=== PATIENT | male | born 1955 ===

== ENCOUNTER 2019-01-30 10:57 | Outpatient (CLI) | payer OTHER | END 2019-01-30 17:00 | disposition home or self-care (01) | LOC: TOM 10:57 | DX: R51 Headache (principal) ==

== ENCOUNTER 2019-06-01 06:00 | Day surgery (SDC) | payer OTHER | END 2019-06-01 10:30 | disposition home or self-care (01) | LOC: AMB-ENDOS 06:00 | DX: D12.0 Benign neoplasm of cecum (principal); D12.2 Benign neoplasm of ascending colon; D12.3 Benign neoplasm of transverse colon; K64.4 Residual hemorrhoidal skin tags ==

== ENCOUNTER 2021-05-17 08:00 | Outpatient (CLI) | payer OTHER | END 2021-05-17 08:30 | disposition home or self-care (01) | LOC: PPH VACUNA 08:00 | PROVIDERS: ATTEND Emergency Medicine Pediatric Emergency Medicine | DX: Z23 Encounter for immunization (principal) ==

== ENCOUNTER 2021-11-29 09:00 | Outpatient (CLI) | payer OTHER | END 2021-11-29 09:15 | disposition home or self-care (01) | LOC: PPH VACUNA 09:00 | PROVIDERS: ATTEND Emergency Medicine Pediatric Emergency Medicine | DX: Z23 Encounter for immunization (principal) ==

== ENCOUNTER 2022-10-03 08:42 | Outpatient (CLI) | payer OTHER | END 2022-10-03 08:46 | disposition home or self-care (01) | LOC: RAD 08:42 | PROVIDERS: ATTEND Obstetrics & Gynecology | DX: J45.998 Other asthma (principal) ==

== ENCOUNTER 2023-05-01 09:30 | Outpatient (CLI) | payer OTHER | END 2023-05-01 09:45 | disposition home or self-care (01) | LOC: PPH VACUNA 09:30 | PROVIDERS: ATTEND Emergency Medicine Pediatric Emergency Medicine | DX: Z23 Encounter for immunization (principal) | CPT/HCPCS: 90653; G0008 ==